=== PATIENT | male | born 1935 | race Caucasian/White ===

== ENCOUNTER → 2021-08-23 | Outpatient (CLI) | payer MEDICARE, BC ==
[~2021-08-23] MED LIST: ARICEPT 5MG PO; ASPIRIN 32325 MG/TAB; DEBROX OT; DEPAKOTE 250MG250 MG PO; DULCOLAX S10 MG/SUPP RC; GOOD NEIGH1200 MG/15; IMODIUM 2MG CAPS2 MG PO; KEPPRA 500MG500 MG PO; LIPITOR20 MG PO; MIRALAX PA17 GM/Dose PO; MYLANTA 150 ML150 M1 PO; REQUIP0.25 MG PO; SINEMET 25/101 UDTAB PO; TYLENOL 500MG500 MG PO; TYLENOL SU650 MG/SUP RC
== END ==
LOC: EDSEX 12:13 → ZCOL.LAB 12:13
DX: Z76.89 Persons encountering health services in other specified circumstances (principal)

== ENCOUNTER → 2021-09-22 | Outpatient (CLI) | payer MEDICARE, BC | LOC: ZCOL.LAB 18:11 | DX: E78.5 Hyperlipidemia, unspecified (principal); R73.9 Hyperglycemia, unspecified ==

== ENCOUNTER 2021-09-23 10:11 | Emergency (ER) | payer MEDICARE ==
[~2021-09-23] VITALS: Ht 182.9 cm; Wt 81.8 kg
[2021-09-23 10:17] VITALS: TEMP 97.6
[2021-09-23] MEDS ORDERED: ARICEPT 5MG PO (10:52)
[2021-09-23] MEDS ORDERED: TYLENOL SU650 MG/SUP RC (10:52)
[2021-09-23] MEDS ORDERED: LIPITOR20 MG PO (10:53)
[2021-09-23] MEDS ORDERED: ASPIRIN 32325 MG/TAB (10:53)
[2021-09-23] MEDS ORDERED: DULCOLAX S10 MG/SUPP RC (10:54)
[2021-09-23] MEDS ORDERED: DEBROX OT (10:55)
[2021-09-23] MEDS ORDERED: DEPAKOTE 250MG250 MG PO (10:55)
[2021-09-23] MEDS ORDERED: KEPPRA 500MG500 MG PO (10:57)
[2021-09-23] MEDS ORDERED: IMODIUM 2MG CAPS2 MG PO (10:57)
[2021-09-23] MEDS ORDERED: GOOD NEIGH1200 MG/15 (10:58)
[2021-09-23] MEDS ORDERED: MIRALAX PA17 GM/Dose PO (11:00)
[2021-09-23] MEDS ORDERED: MYLANTA 150 ML150 M1 PO (11:02)
[2021-09-23] MEDS ORDERED: REQUIP0.25 MG PO (11:02)
[2021-09-23] MEDS ORDERED: SINEMET 25/101 UDTAB PO (11:03)
[2021-09-23] MEDS ORDERED: TYLENOL 500MG500 MG PO (11:04)
[2021-09-23 11:30] LABS: BASO % 0.5 % (0.0-2.0); EOS # 0.2 K/mm3 (0.0-0.7); EOS % 2.3 % (0.0-4.0); GRAN # 5.5 K/mm3 (1.4-6.5); GRAN % 71.4 % (42.2-75.2); HEMATOCRIT 51.8 % (42.0-52.0); HEMOGLOBIN 16.1 g/dl (13.5-18.0); LYMPH # 1.6 K/mm3 (1.2-3.4); LYMPH % 20.7 % (20.0-51.0); MEAN CELL VOLUME 102 fl (80.0-100.0); MEAN CORPUSCULAR HEMOGLOBIN 32 pg (27-31); MEAN CORPUSCULAR HGB CONC 31 g/dl (33.0-37.0); MEAN PLATELET VOLUME 11.5 fl (7.4-10.4); MONO # 0.4 K/mm3 (0.1-0.6); MONO % 4.7 % (1.7-9.3); PLATELET COUNT 132 K/mm3 (130-400)
[2021-09-23 11:54] LABS: ALBUMIN 3.7 gm/dL (3.4-4.8); BILIRUBIN,TOTAL 1.2 mg/dL (0.2-1.2); CALCIUM 10.2 mg/dL (8.4-10.2); CREATININE, serum 1.19 mg/dL (0.72-1.25); POTASSIUM 4.1 mmol/L (3.5-4.5); TOTAL PROTEIN 7.2 gm/dL (6.2-8.1)
[2021-09-23 12:01] LABS: COLLECTION METHOD CLEAN CATCH
[2021-09-23 12:11] LABS: MUCOUS Present (NOT PRESENT); SQUAMOUS EPITHELIAL None Seen /hpf (0-10); URINE BACTERIA None Seen /hpf (NONE SEEN); URINE RBC 0-2 /hpf (0-2)
[2021-09-23 12:13] LABS: PH 5 (5-8); URINE APPEARANCE Clear (CLEAR/HAZY); URINE COLOR Yellow (YELLOW); URINE KETONE 1+ (NEGATIVE)
[2021-09-23 12:14] LABS: URINE BLOOD Negative (NEGATIVE); URINE GLUCOSE Negative (NEGATIVE); URINE NITRATE Negative (NEGATIVE); URINE PROTEIN(semi-quant) Negative (NEGATIVE)
[2021-09-23 16:24] VITALS: BP 175/86; PULSE 73
== END 2021-09-23 16:33 | disposition home or self-care (01) ==
LOC: COL.ER 10:11
PROVIDERS: Family Medicine
DX: R41.82 Altered mental status, unspecified (principal)
CPT/HCPCS: J7030; J7120